=== PATIENT | female | born 1995 | race Two or more races ===

== ENCOUNTER 2024-01-21 09:09 | Outpatient (CLI) | payer OTHER, BC, SELFPAY | END 2024-01-21 09:10 | disposition home or self-care (01) | LOC: LKVREF 09:09 | PROVIDERS: Visit Provider Advanced Practice Midwife | DX: E03.9 Hypothyroidism, unspecified (principal) | CPT/HCPCS: 84443 ==

== ENCOUNTER 2024-02-05 12:11 | Outpatient (CLI) | payer OTHER, BC, SELFPAY ==
--- NOTE | 2024-02-05 12:30 | US_ITS ---
Patient: SHAILA STORY Facility:?[facility] Patient ID:?[id number] Site Patient ID:?[id number]. Site :?[id number] Study:?US-OB Pelvis OB F/U-02/05/2024 12:58:16 PM Ordering Physician:?HARMAN FRAIRE CNM Final Report: ----- ADDENDUM ----- CORRECTION: : Item 1. in the IMPRESSION should read, ?Living fetus in breech lie with gestational age of 28 weeks by LMP and 28 weeks 6 days by today`s measurements. EDC based on LMP is 04/29/2024.? Dictated by Dylon Noble MD @ Feb 10 2024 11:57AM INDICATION: Velamentous cord insertion TECHNIQUE: Limited transabdominal two-dimensional hernandez-scale ultrasound examination. COMPARISON: None FINDINGS: There is a living fetus in breech lie with gestational age of 28 weeks by LMP and 28 weeks 6 days by today`s measurements. EDC based on LMP is 04/29/2024. BPD: 7.2 cm, 28 weeks 5 days Head circumference: 27.0 cm, 29 weeks 3 days Abdominal circumference: 24.6 cm, 28 weeks 6 days Femur length: 5.3 cm, 28 weeks 2 days The weight is estimated at 1270 grams, the 65th percentile. The heart rate is measured at 139 beats per minute and the rhythm appears regular. The amniotic fluid volume is within normal limits with single deepest pocket of 5.8 cm. The placenta is right wall and superior to the cervical os. There is no evidence of previa. A velamentous cord insertion is demonstrated. IMPRESSION: 1. Living fetus in breech lie with gestational age of 28 weeks by LMP and 20 weeks 6 days by today`s measurements. EDC based on LMP is 04/29/2024. 2. weight estimated at 1270 grams, the 65th percentile. 3. Velamentous cord insertion. Dictated by Dylon Noble MD @ 02/06/2024 10:46:33 AM Signed by:?Dylon Noble MD @02/06/2024 10:46:33 AM (Electronic Signature)
== END 2024-02-05 12:12 | disposition home or self-care (01) ==
LOC: US 12:12
PROVIDERS: Visit Provider Advanced Practice Midwife
DX: O43.123 Velamentous insertion of umbilical cord, third trimester (principal); Z3A.28 28 weeks gestation of pregnancy
CPT/HCPCS: 76816; 86592

== ENCOUNTER 2024-03-05 08:10 | Outpatient (CLI) | payer OTHER, BC, SELFPAY ==
--- NOTE | 2024-03-05 08:15 | US_ITS ---
Patient: SHAILA STORY Facility:?[facility] Patient ID:?[id number] Site Patient ID:?[id number]. Site :?1995 Study:?US-OB Pelvis growth-03/05/2024 8:48:15 AM Ordering Physician:?Rachell Mckinley Final Report: INDICATION: Third trimester scan, evaluate growth. velamentous cord insertion. COMPARISON: 02/05/2024 TECHNIQUE: Real time hernandez scale imaging of the fetus was performed. FINDINGS: Sonographic imaging demonstrates a single living intrauterine gestation. Fetus demonstrates a regular cardiac rate of 142 beats per minute. Fetus has a breech position. The placenta lies anteriorly. Velamentous cord insertion again noted. Amniotic fluid volume appears normal and there is a single deepest vertical pocket: 4.8 cm. The estimated weight is 1983gm which lies at the 50th %. On the prior OB ultrasound exam dated 02/05/2024 the estimated weight was at the 65th%. BPD 34th percentile. HC 20th percentile. AC 68th percentile. FL 38th percentile the HC/AC ratio measures 1.02 range (0.96-1.13). IMPRESSION: Sonographic gestational age 32 weeks 2 days and sonographic due date of 04/28/2024. Good correlation with dates. Normal interval growth. Estimated weight 50th percentile. Abdominal circumference 68th percentile. Dictated by Santi Escobar MD @ 03/05/2024 10:15:27 AM Signed by:?Santi Escobar MD @03/05/2024 10:15:27 AM (Electronic Signature)
== END 2024-03-05 08:11 | disposition home or self-care (01) ==
LOC: US 08:10
PROVIDERS: Visit Provider Advanced Practice Midwife
DX: O43.123 Velamentous insertion of umbilical cord, third trimester (principal); Z3A.32 32 weeks gestation of pregnancy
CPT/HCPCS: 76816

== ENCOUNTER 2024-03-19 08:14 | Outpatient (CLI) | payer OTHER, BC, SELFPAY | END 2024-03-19 08:15 | disposition home or self-care (01) | LOC: NFLDREF 04-07 15:50 | PROVIDERS: Visit Provider Obstetrics & Gynecology | DX: Z34.93 Encounter for supervision of normal pregnancy, unspecified, third trimester (principal); E03.9 Hypothyroidism, unspecified; Z3A.36 36 weeks gestation of pregnancy | CPT/HCPCS: 82728; 84443 ==

== ENCOUNTER 2024-04-02 08:12 | Outpatient (CLI) | payer OTHER, BC, SELFPAY ==
--- NOTE | 2024-04-02 08:15 | CRLHL7_ITS ---
For Patients: As a result of the Century Cures Act, medical imaging exams and procedure reports are released immediately into your electronic medical record. You may view this report before your referring provider. If you have questions, please contact your health care provider. HISTORY: Velamentous cord insertion COMPARISON: Ob ultrasound from 03/05/2024 TECHNIQUE: Ultrasound examination of the is performed with transabdominal technique. The biophysical profile is also performed. FINDINGS: A single intrauterine gestation is seen in cephalic presentation with regular cardiac activity at 147 beats per minute. The placenta is anterior and to the right and is free of the cervical os. The placental grade is 3 and the amniotic fluid volume is normal. Single deepest vertical pocket: Normal at 6.7 cm. BPD: 8.8 cm 35 weeks 3 days HC: 32.5 cm 36 weeks 5 days AC: 34.3 cm 38 weeks 1 day. Ninety-sixth percentile. FL: 6.8 cm 35 weeks 1 day The estimated age by ultrasound is 36 weeks 3 days, with an estimated date of delivery of 04/27/2024. This correlates well with the clinical age of 36 weeks 1 day and the previous ultrasound. The FL/AC ratio of 19.9 is just below bottom normal 20.0. The rest of the ultrasound ratios are normal. The estimated weight of 3100 grams is at the 74th percentile based on the clinical dates. The biophysical profile score is 8/8, with no points off. IMPRESSION: 1. Single intrauterine gestation in cephalic presentation with regular cardiac activity. 2. Estimated gestational age is 36 weeks 3 days. 3. There has been appropriate interval growth. 4. Estimated weight of 3100 grams is at the 74th percentile based on the clinical dates. 5. Biophysical profile score is 8/8, with no points off. Dictated by Rafat Crowell MD @ 04/04/2024 11:50:17 PM (Electronically Signed)
== END 2024-04-02 08:13 | disposition home or self-care (01) ==
LOC: US 08:13
PROVIDERS: Visit Provider Obstetrics & Gynecology
DX: O43.123 Velamentous insertion of umbilical cord, third trimester (principal); Z3A.36 36 weeks gestation of pregnancy
CPT/HCPCS: 76816; 76819; 87081; 87653

== ENCOUNTER 2024-04-27 17:44 | Outpatient (CLI) | payer OTHER, BC, SELFPAY ==
[2024-04-27 18:03] VITALS: BP 117/72; PULSE 75
[2024-04-27 18:04] VITALS: PULSE 77; O2SAT 98
--- NOTE | 2024-04-27 21:42 | PC.OBNST ---
NST Note NST Note Start: 04/27/24 18:14 Freq: ONCE Status: Active Protocol: Document 04/27/24 20:30 HCR (Rec: 04/27/24 21:00 HCR [id number]) NST Note 1 Para (# of births) 0 EDC 04/29/24 Gestational Age In Weeks & Days 39 Weeks & 5 Days Patient Presented with Complaint(s) of Contractions/cramping, Decreased movement Reactive Yes Appropriate for Gestational Age Yes DYLAN Menchaca, DYLAN Date 04/27/24 Reactive Yes Appropriate for Gestational Age Yes DYLAN Herman, DYLAN Date 04/27/24 OB NST charge Yes Complete NST Note via Write Note Yes The provider's electronic signature indicates the NST is reactive/appropriate for gestational age. *Note to provider: If an addendum is required, open the patient's chart and click on the note under the Nurse/Allied Health tab.
== END 2024-04-27 20:32 | disposition home or self-care (01) ==
LOC: OB OUT 17:45 → OB 17:46
PROVIDERS: Visit Provider Obstetrics & Gynecology
DX: O36.8130 Decreased fetal movements, third trimester, not applicable or unspecified (principal); Z3A.39 39 weeks gestation of pregnancy
CPT/HCPCS: 59025; G0463

== ENCOUNTER 2024-04-30 09:33 | Outpatient (CLI) | payer OTHER, BC, SELFPAY ==
--- NOTE | 2024-04-30 09:30 | CRLHL7_ITS ---
For Patients: As a result of the Century Cures Act, medical imaging exams and procedure reports are released immediately into your electronic medical record. You may view this report before your referring provider. If you have questions, please contact your health care provider. INDICATION: Post dates, velamentous insertion of umbilical cord COMPARISON: 04/02/2024 TECHNIQUE: Real time hernandez scale imaging of the fetus was performed. Without non-stress testing. FINDINGS: Sonographic imaging demonstrates a single living intrauterine gestation. Fetus demonstrates a regular cardiac rate of 145 beats per minute. Fetus has a vertex position. The amniotic fluid volume appears normal and there is a single deepest pocket measurement of 3.5 cm. The fetus was active and demonstrated normal breathing movements. There was normal flexion and extension of the trunk and extremities. IMPRESSION: Normal biophysical profile score of 8 out of 8. The cord insertion is not imaged on this study. Dictated by Santi Escobar MD @ 05/01/2024 7:37:22 PM (Electronically Signed)
== END 2024-04-30 09:34 | disposition home or self-care (01) ==
LOC: US 09:33
PROVIDERS: Visit Provider Obstetrics & Gynecology
DX: O43.122 Velamentous insertion of umbilical cord, second trimester (principal)
CPT/HCPCS: 76819

== ENCOUNTER 2024-05-02 18:34 | Inpatient (IN) | payer OTHER, BC, SELFPAY ==
[2024-05-02 18:04] VITALS: BP 130/85; PULSE 175; PULSE 77; TEMP 36.6; O2SAT 81
[2024-05-02 18:37] VITALS: BMI 36.0
--- NOTE | 2024-05-02 19:07 | PM.OBHPLI ---
OB - H&P: HPI Labor/Induction History of Present Illness Time Seen by Provider: 19:10 Date Seen: 05/02/24 Chief complaint: maternity Narrative: The patient is a 28 year old 1 para 0 at 40 weeks gestation by US, who presents with spontaneous onset of labor. is complicated by anemia and marginal cord insertion. Sheyla notes onset of regular painful contractions at 0800 this morning. She was 3cm in clinic Friday, s/p membrane sweep with brown bloody show. Today, she is having contractions every 4-5 minutes rated as 9/10 in severity. More recently, her pain is 6 to 7/10. She denies vaginal bleeding or leaking of fluid. Endorses active movement. Specific Issues/Plans G1, ARIEL: 04/29/24 by early second trimester US Transfer of care from [facility] at 21 weeks H&P by CGM on 04/23/24, full exam Dr. Murillo 04/30/24 # Velamentous cord insertion at level 2 US -Start growth US every 4 weeks at 28 weeks -Growth at 28wks 65% -Weekly testing after 36 weeks - worksheet completed 01/21/24 # Hypothyroidism, on levothyroxine 50mcg -TSH every trimester: - 13 weeks: 3.02 - 24 weeks: 2.00 - 34 weeks: 1.910 Tdap: 02/20/24 ULTRASOUNDS: 04/02/24 = 36 1/7 weeks: cephalic, SDP 6.7, EFW 74%, AC 96%, BPD 38%, HC 34%, FL 20% Meds Home Medications and Allergies Home Medications ?Medication ?Instructions ?Recorded ?Confirmed ?Type docosahexaenoic acid 200 mg mg PO 12/19/23 04/30/24 History capsule ( DHA) omeprazole 20 mg capsule,delayed 20 mg PO QDAY PRN 04/16/24 04/30/24 History release Allergies Allergy/AdvReac Type Severity Reaction Status Date / Time No Known Drug Allergies Allergy Verified 04/30/24 08:13 OB - H&P: Exam Physical Exam: Vital signs: Temp Pulse BP Pulse Ox 97.8 F 77 130/85 81 L 05/02/24 18:04 05/02/24 18:04 05/02/24 18:04 07/14/24 18:04 Narrative: General: Alert and oriented, in no acute distress Abdomen: Gravid. Nontender. Cervix: 4/70/-2, anterior and off to maternal left heart tones: Category 1. Baseline is 140 beats per minute, moderate variability, accelerations present decelerations absent. Bedside ultrasound: Cephalic presentation OB - Problem Based A/P Additional Plan (1) Anemia: Status: Acute (2) Velamentous insertion of umbilical cord: Status: Acute (3) : Status: Acute (4) Hypothyroidism: Status: Acute Plan Sheyla Caraballo is a 28 year old 1 para 0 at 40 weeks gestation by US, who presents with spontaneous onset of labor. is complicated by anemia and marginal cord insertion. Patient notes onset of regular/painful uterine contractions today, s/p membrane sweep in clinic on Friday. I was requested by RN to check patient due to difficult exam. She is 4/70/-2 with head well applied to the cervix. Her cervix is anterior and off to the maternal left. TAUS confirmed cephalic presentation. - Plan to admit for observation and augmentation with pitocin as needed overnight. Patient expressed understanding and is in agreement with plan. - EFW by US 4 weeks ago 3100 at 71%ile, AC 96%ile - BT and CBC on admission given anemia - GBS negative - Recommend labor circuit to optimize positioning - Analgesic measures available per patient request
[2024-05-02 19:36] LABS: Basophils Absolute Auto 0.03 K/uL (0.00-0.30); Basophils Percent Auto 0.3 % (0.0-3.0); Eosinophils Absolute Auto 0.15 K/uL (0.00-0.50); Eosinophils Percent Auto 1.4 % (0.0-7.0); Hemoglobin* 10.6 gm/dL (12.0-16.0); Immature Granulocytes Abs Auto 0.22 K/uL (0.00-0.30); Immature Granulocytes Pct Auto 2.1 %; Lymphocytes Percent Auto 17.6 % (20-44); Mean Corpuscular HGB Conc 31 gm/dL (32-36); Mean Corpuscular Hemoglobin 26 pg (26-34); Mean Corpuscular Volume 82 fL (80-100); Monocytes Percent Auto 7.3 % (0.0-11.0); Neutrophils Absolute Auto 7.58 K/uL (1.7-7.0); Neutrophils Percent Auto 71.3 % (42.0-72.0); Platelet Count* 290 K/uL (140-440); RDW Coefficient of Variation % 17.1 % (11.5-15.5); Red Blood Count 4.15 m/uL (4.00-5.20); White Blood Count* 10.63 K/uL (4.50-11.00)
[2024-05-02 19:38] LABS: Slide Review Reflex No
[2024-05-02 20:46] VITALS: BP 121/84; PULSE 74; PULSE 75; TEMP 36.4; O2SAT 99
[2024-05-03] VITALS (25 sets, daily range): BP systolic 103–160; BP diastolic 55–124; PULSE 63–105; RESP 18–20; TEMP 36.4–37.3; O2SAT 97–100
[2024-05-03] MEDS: OXYTOCIN 30 unit/500 ML in NS 30 UNIT/500 ML BAG IVPB (00:48)
[2024-05-03] MEDS: LACTATED RINGERS 1000 ML 1,000 ML 125 ML IV ×3 (00:48→16:59)
--- NOTE | 2024-05-03 14:43 | P.OBPN_ITS ---
Subjective Time Seen by Provider: 09:30 Date Seen: 05/03/24 Narrative: Patient complains of left lower quadrant pain and suprapubic pain. Discomfort does not seem to correlate with contractions but is more of a constant nature. Denies unusual vaginal discharge or leakage of fluid. Objective Exam: Abdomen gravid, nontender, fetus is in a vertex presentation by Buzz's with back along the maternal left. Vital Signs: Last Vital Signs Temp 97.5 F L 05/03/24 10:39 Pulse 78 05/03/24 12:07 Resp 20 05/03/24 07:51 BP 129/83 05/03/24 12:07 Pulse Ox 99 05/03/24 14:42 Pelvic Exam Dilation (cm): 5 Effacement (%): 80 Station: -2 Comments: Occiput transverse Contractions Monitor mode: External Contraction Frequency: 2-4 minutes Contraction pattern: Irregular Contraction intensity: Moderate Pitocin Rate (mU/min): 11 Assessment Assessment: prodromal labor Heart Rate Baseline: 135 Product Development Consultant Variability: Moderate (6-25) Monitor Accelerations: Present Monitor Decelerations: None Plan Plan: Continue expectant management. Consider trying position changes to affect rotation and descent into the pelvis. Patient counseled as to pain control options if needed.
--- NOTE | 2024-05-03 14:46 | PM.OBPNL ---
Subjective Time Seen by Provider: 14:30 Date Seen: 05/03/24 Narrative: Patient complains of pelvic pressure. Patient is pushing involuntarily with contractions while standing at the bedside per nursing. Membranes spontaneously ruptured at 1315, light meconium staining of the amniotic fluid was noted. Objective Exam: Patient standing by bedside, distressed with contractions. Abdomen soft, gravid, intermittently firm with contractions. Vital Signs: Last Vital Signs Temp 97.5 F L 05/03/24 10:39 Pulse 78 05/03/24 12:07 Resp 20 05/03/24 07:51 BP 129/83 05/03/24 12:07 Pulse Ox 99 05/03/24 14:42 Pelvic Exam Dilation (cm): 7 Effacement (%): 100 Station: 0 Contractions Monitor mode: External Contraction Frequency: 1.5-3 minutes Contraction pattern: Regular Contraction intensity: Strong/Firm Pitocin Rate (mU/min): 12 Assessment Assessment: active labor Amniotic Membrane Status: SROM Status: Category l Heart Rate Baseline: 135 Gasoline Pump Mechanic Variability: Moderate (6-25) Monitor Accelerations: Present Monitor Decelerations: None Plan Plan: Continue expectant management. Patient requests nitrous oxide for pain control. Anticipate vaginal delivery.
[2024-05-03] MEDS: LIDOCAINE 1 % PF 30 ML INJECTION (17:27)
--- NOTE | 2024-05-03 17:56 | W.PM.OBVAGDE ---
OB Procedure Vag Delivery Mother Details Mother Details: The patient is a 28 year-old, 1, Para 0, admitted on 05/02/24 at 40 3/7 weeks gestation in prodromal labor. Contractions had begun on 05/02/24 at 0800, and were 4-5 minutes apart at the time of arrival. Cervix on admission was 4/70/-2 with membranes intact. Labor was initially managed expectantly overnight. : 1 Para: 0 Weeks Gestation: 40.3 Admission Date: 05/02/24 Additional Details Amniotic Membrane Status: SROM Amniotic Membrane Rupture Date: 05/03/24 Amniotic Membrane Rupture Time: 13:15 Amniotic Membrane Fluid Description: Meconium Stained Analgesia/Anesthesia Type: None Waterbirth: No Pitcoin: Yes Intrapartal Events: Labor Augmentation Delivery augmentation: pitocin Labor Onset: 12:45 Complete: 15:35 Pushin:45 Heart: heart tones during second stage were 120's baseline with variable decelerations that deepened as vertex descended, initially to 100s, then to 90s, and some just prior to delivery to 60-80s. Delivery Details Delivery Date: 05/03/24 Delivery Time: 17:25 Route of delivery: Infant Gender: Female Infant Viability: Alive; Heart Rate Present Position at Delivery: OA Delivery Details: Delivered over 2nd degree midline perineal laceration via spontaneous vaginal delivery. Infant was placed on maternal abdomen.? Cord was clamped and cut after a 60 second delay. Nose and mouth were bulb suctioned.? Infant weight pending. 1 Minute Interval Total Score: 8 5 Minute Interval Total Score: 9 Additional Details Shoulder Dystocia: No Placenta Delivery Time: 17:32 Placental Delivery Description: Spontaneous Delivery repair: Chromic (3-0) Procedure Done: Global Blood Loss: 350 Laceration: Perineal - 2nd Degree Blood Loss Measurement Type: EBL Bakri Used: No Sponge/Need Count Correct: Yes Cord Vessel Description: 3 Vessels (velamentous/marginal) and Tight (nuchal cord x1, reduced over vertex prior to delivery of shoulders) Event Summary Status: Mother and infant were stable after delivery. Disposition: floor
[2024-05-04 00:47] VITALS: BP 124/75; PULSE 88; RESP 18; TEMP 37.3; O2SAT 98
[2024-05-04] MEDS: IBUPROFEN 600 MG TABLET PO ×2 (00:54→13:01)
[2024-05-04] MEDS: LANOLIN CREAM 1 APPLIC TOPICAL (00:54)
[2024-05-04 05:02] VITALS: BP 107/61; PULSE 90; RESP 17; TEMP 37.2; O2SAT 98
[2024-05-04 06:17] LABS: Hemoglobin* 8.2 gm/dL (12.0-16.0)
--- NOTE | 2024-05-04 07:59 | P.OBPN_ITS ---
OB - PN:Subj Subjective Date Seen: 05/04/24 Patient comments OB post-: no complaints, pain well controlled, tolerating diet and flatus present Atlantic status: and doing well Atlantic feeding status: exclusively Narrative: complications:? none? Sheyla feels well.? Her pain is well controlled with current medications.? She has no new complaints.? Urinary output is adequate and she is voiding without difficulty.? Has a good appetite, is tolerating a general diet, is passing flatus, and has not yet had a bowel movement.? Has scant amount of rubra lochia.? She is ambulating well.?She is and feels the latch is good but is concerned about how much baby is getting. Briefly discussed normal amounts of breastmilk and what to expect. Her Hgb this am is 8.2. She denies feeling lightheaded or dizzy but has not been up much yet besides to the bathroom. Encouraged ambulation today. She is feeling somewhat physically fatigued. Will restart PO iron supplementation and encouraged dietary intake. Repeat Hgb ordered for the morning. OB - PN: Obj Exam Physical Exam: Vital signs: Temp Pulse Resp BP Pulse Ox O2 Del Method 99 F 90 17 107/61 98 Room Air 05/04/24 05:02 05/04/24 05:02 05/04/24 05:02 05/04/24 05:02 05/04/24 05:02 05/04/24 05:02 Narrative: GENERAL APPEARANCE:? normal affect, alert, no distress? MOOD:? appropriate? CHEST:? clear to auscultation and percussion? HEART:? regular rate and rhythm? ABDOMEN:? soft, non-tender the uterine fundus is U/2 and is appropriate for the stage of recovery.? PERINEUM:? mild edema of the perineum, there is a 2nd degree perineal laceration that is healing well.? EXTREMITIES:? normal and no edema? OB - PN: Obj Data Labs Labs: Laboratory Results - last 24 hr 05/04/24 05:53 Hgb 8.2 L OB - PN: A/P Delivery Assessment and Plan (1) Anemia: Status: Acute (2) Hypothyroidism: Status: Acute (3) Lactating mother: Status: Acute (4) care following vaginal delivery: Status: Acute Plan day: 1 Plan: routine care Comments: Routine care. Anticipate discharge home tomorrow. Restart PO iron supplementation today. Repeat Hgb tomorrow morning.
[2024-05-04 08:02] VITALS: BP 112/77; PULSE 87; RESP 16; TEMP 37.2; O2SAT 98
[2024-05-04] MEDS: FERROUS SULFATE 325 MG TABLET PO (13:02)
[2024-05-04] MEDS: DOCUSATE SODIUM 100 MG CAPSULE PO (13:04)
[2024-05-04 13:05] VITALS: BP 117/73; PULSE 91; RESP 16; TEMP 37.1; O2SAT 97
[2024-05-04 17:42] LABS: Rapid Plasma Reagin (RPR) Non Reactive (Non Reactive)
[2024-05-04 18:50] VITALS: BP 121/75; PULSE 87; RESP 16; TEMP 36.6; O2SAT 98
[2024-05-05 00:32] VITALS: BP 109/67; PULSE 84; RESP 18; TEMP 37.4; O2SAT 98
[2024-05-05] MEDS: IBUPROFEN 600 MG TABLET PO ×2 (00:39→13:29)
[2024-05-05 06:35] LABS: HGB WITH REFLEX TO FERRITIN 8.4 (12.0-16.0)
[2024-05-05 08:14] LABS: Ferritin* 13.3 ng/mL (6.24-137.0)
[2024-05-05 08:47] VITALS: BP 109/68; PULSE 95; RESP 16; TEMP 37; O2SAT 98
--- NOTE | 2024-05-05 10:29 | P.DS_ITS ---
DS: Providers Provider Time Seen by Provider: 09:30 Date Seen: 05/05/24 Date of admission: 05/02/24 18:34 Primary care physician: Not a Local Provider Admitting Clinician: Jacqueline Mcgill MD Attending Physician on discharge: Jacqueline Mcgill MD Date of Discharge: 05/05/24 DS: Diagnosis Discharge Diagnosis (1) care following vaginal delivery: Status: Acute (2) Lactating mother: Status: Acute (3) Anemia: Status: Acute (4) Hypothyroidism: Status: Acute Exam Narrative: Exam Narrative: GENERAL APPEARANCE:? normal affect, alert, no distress MOOD:? appropriate CHEST:? clear to auscultation HEART:? regular rate and rhythm ABDOMEN:? soft, non-tender the uterine fundus is 2 cm below Umbilicus, Midline and is appropriate for the stage of recovery. PERINEUM:? mild edema of the perineum, there is a 2nd Perineal Laceration well approximated,? that is healing well. EXTREMITIES:? normal and no edema Const: Vital Signs, click to edit/add: Vital Signs - 24 hr 05/04/24 13:05 05/04/24 18:50 05/05/24 00:32 Temperature 98.7 F 97.9 F 99.3 F Pulse Rate [Pulse Oximeter] 91 87 84 Respiratory Rate 16 16 18 Blood Pressure [Ri ght Arm] 117/73 121/75 109/67 Pulse Oximetry 97 98 98 Oxygen Delivery Me thod Room Air Room Air Room Air 05/05/24 08:47 Temperature 98.6 F Pulse Rate [Pulse Oximeter] 95 Respiratory Rate 16 Blood Pressure [Ri ght Arm] 109/68 Pulse Oximetry 98 Oxygen Delivery Me thod OB - DS: Summary Hospital Course Hospital Course: The patient is a 28 year old G 1 P 1001 at 40w6d weeks gestation that was admitted to the Center on 05/02/24 for IOL for post dates. She had an uncomplicated vaginal delivery. She delivered a viable female infant. She is breast feeding. the patient has done well. Peripartum Data delivery method: Vaginal Laceration description: Perineal - 2nd Degree Episiotomy description: None complications: none Infant Gender: Female Infant Discharge Plan: Home Status at Discharge Overall status at discharge: patient is progressing back to baseline Time Spent with Patient Time attestation: Total time spent providing and/or coordinating discharge services: Time spent: Less than 30 minutes Discharge Plan Discharge Disposition: Home, Self-Care Date of Admission: 05/02/24 18:34 Attending Provider on Discharge: Gloria West Primary Care Provider: Provider,Not a Local Condition: Stable Anticipated Discharge Date/Time: 05/05/24 10:29 Discharge Medications: Continued DHA 200 mg capsule PO levothyroxine 50 mcg capsule 50 mcg PO QDAY Qty: 90 0RF ferrous sulfate 325 mg (65 mg iron) tablet,delayed release (DR/EC) 650 mg PO Q OTHER DAY Qty: 60 0RF Discontinued omeprazole 20 mg capsule,delayed release(DR/EC) 20 mg PO QDAY PRN Discharge Orders: Discharge Order (Routine); Ordered 05/05/24 Ordered By: Gloria West Patient Education: OB Over the Counter Medication Information, OB Vaginal/Breast Feeding Additional Instructions: Follow up at 2 weeks and 6 weeks in clinic Activity Level: Activity as Tolerated Discharge Diet: Regular Follow Up Appointments: Provider,Not a Local [Primary Care Provider] - Forms: [employer] Info Instructions
[2024-05-05] MEDS: DOCUSATE SODIUM 100 MG CAPSULE PO (13:30)
== END 2024-05-05 14:02 | disposition home or self-care (01) | DRG 560 ==
LOC: OB OUT 18:34 → OB 18:34
PROVIDERS: Advanced Practice Midwife; Obstetrics & Gynecology; Admitting Provider Obstetrics & Gynecology; Visit Provider Obstetrics & Gynecology
DX: O62.0 Primary inadequate contractions (principal); O77.0 Labor and delivery complicated by meconium in amniotic fluid; O43.123 Velamentous insertion of umbilical cord, third trimester; O69.89X0 Labor and delivery complicated by other cord complications, not applicable or unspecified; O99.284 Endocrine, nutritional and metabolic diseases complicating childbirth; E03.9 Hypothyroidism, unspecified; O99.02 Anemia complicating childbirth; D64.9 Anemia, unspecified; O70.1 Second degree perineal laceration during delivery; Z3A.40 40 weeks gestation of pregnancy; Z37.0 Single live birth
CPT/HCPCS: 36415; 76815; 82728; 85018; 85025; 86592; 86850; 86900; 86901; 88307; A9270; J2001; J7120

== ENCOUNTER 2024-05-07 11:22 | Inpatient (IN) | payer OTHER, BC, SELFPAY ==
[2024-05-07] VITALS (9 sets, daily range): BP systolic 101–123; BP diastolic 64–88; PULSE 78–98; RESP 12–18; TEMP 36.7–37.4; O2SAT 96–98; BMI 25.0
--- NOTE | 2024-05-07 11:39 | ED.GENADULT ---
HPI - General Adult General Time Seen by Provider: 11:39 Date Seen: 05/07/24 Chief complaint: Extremity Pain/Injury, Lower Stated complaint: abdominal pain - edema Time Seen by Provider: 05/07/24 11:32 Source: patient, RN notes reviewed and old records reviewed Mode of arrival: ambulatory Limitations: no limitations History of Present Illness HPI narrative: This 28-year-old female was referred from [facility] by nursing staff with concern of bilateral leg and wrist swelling . Patient was having increasing right calf pain with this. Patient delivered vaginally on 05/03/2024, was discharged on the . She is a 1 para 1, was an induction of labor for postdates at 40 weeks 6 days on May 02. Her blood pressure in clinic today was 119/80, she was having no chest pain, no shortness of breath. She was referred down here for the possibility of ultrasounds in ruling out DVTs. Patient notes the swelling started yesterday increased through the night, her legs feel tense. She has noted no fevers chills, no shortness of breath, no chest pain. She does not have any abdominal pain but notes now with walking her vagina hurts. She is still having lochia, no significant vaginal bleeding, no purulent discharge. She does state that she had a vaginal repair. In review of her chart, she does have hypothyroidism with a normal TSH checked in February. Related Data Home Medications ?Medication ?Instructions ?Recorded ?Confirmed docosahexaenoic acid 200 mg mg PO 12/19/23 04/30/24 capsule ( DHA) Previous Rx's ?Medication ?Instructions ?Recorded levothyroxine 50 mcg capsule 50 mcg PO QDAY #90 caps 02/05/24 ferrous sulfate 325 mg (65 mg 650 mg (2 x 325 mg (65 mg iron)) 03/05/24 iron) tablet,delayed release PO Q OTHER DAY #60 tabs Allergies Allergy/AdvReac Type Severity Reaction Status Date / Time No Known Drug Allergies Allergy Verified 04/30/24 08:13 Review of Systems Status of ROS: Reports: 6 or more systems reviewed and unremarkable except as noted in History and below [facility] Medical History (Updated 05/07/24 @ 13:55 by Anne Contreras MD) Hypothyroidism ?E03.9 - Hypothyroidism, unspecified (ICD-10) Family History Grandmother Diabetes Social History What is your current living situation?: I presently have a place to live Problems where you live: no known problems In the past 12 months, utilities in danger of being shut off: no In past 12 months, lack of transportation kept you from medical appts, meetings, work, or getting things needed for daily living: no In the past 12 mos, have been you worried that your food would run out before you had money to buy more?: never true In the past 12 mos, the food you bought just didn't last and you didn't have money to buy more?: never true Smoking Status: Never smoker Non-prescribed substance use: denies use How often does anyone, including family, friends and others, physically hurt you: never How often does anyone, including family, friends and others, insult or talk down to you: never How often does anyone, including family, friends and others, threaten you with harm: never How often does anyone, including family, friends and others, scream or curse at you: never Little interest or pleasure in doing things: several days Feeling down, depressed, or hopeless: several days Exam Const: Vital Signs, click to edit/add: Vital Signs - 24 hr 05/07/24 11:26 Temperature 98.0 F Pulse Rate [Right Pulse Oximeter] 98 Respiratory Rate 18 Blood Pressure [Ri ght Upper Arm] 116/79 Pulse Oximetry 98 Oxygen Delivery Me thod Room Air This 28-year-old female is seen in exam room 5, she is line on her right side, vitals good. Sclera clear extraocular muscles intact, face normal without any swelling, able speak in complete sentences. Neck supple, no adenopathy, no thyromegaly masses or nodules. Lungs are clear, good air entry, no wheezing or crackles. CV regular rate and rhythm, no murmur, normal S1-S2, no S3-S4. Abdomen is soft, nontender, still enlarged uterus but no tenderness. She has about 3+ pitting edema of her left lower extremity 3 to 4+ of her right lower extremity. Neurovascular is intact. Her calves are sore, lower extremities are sore but more so globally. There is no overlying erythema or warmth. Patient was ambulatory into the ED of her own accord. Documenting provider has reviewed patient's vital signs: yes Course Course ED Course: We will obtain bilateral lower extremity ultrasounds to rule out DVT. Did review third-spacing. Reviewed that seems to be more frequent in deliveries but this certainly can happen. She does have Shan hose at home, they been cutting into the ankles. Reviewed that we can not rule out the DVTs, make sure that they are not there and could consider doing Jace wrapping until the swelling is down a little bit. Usually for most people this does start to reverse itself within a few days an usually is not a significant problem beyond a week. We will also check labs. Her blood pressures are quite good today, really is reassuring against preeclampsia. Will likely talk to the social services analyst on-call as well. Consultations Consultation #1: Page Dr. Womack to review this case. Will await a call back. She has centrally called right back. We reviewed the elevated liver enzymes. Blood pressures are normal. Dr. Espana it is going to see her in clinic after this, she will be able to do a better vaginal exam, will review the liver enzymes in the possibility of preeclampsia developing. We will discharge patient from the ED at her request and have her go to clinic to see OB. Time: 13:46 Vital Signs Vital signs: Initial Vital Signs Temperature 98.0 F 05/07/24 11:26 Temperature Source Temporal Artery Scan 05/07/24 11:26 Pulse Rate 98 05/07/24 11:26 Respiratory Rate 18 05/07/24 11:26 Blood Pressure 116/79 05/07/24 11:26 Blood Pressure Mean 91 05/07/24 11:26 Blood Pressure Position Sitting 05/07/24 11:26 Pulse Oximetry 98 05/07/24 11:26 Oxygen Delivery Method Room Air 05/07/24 11:26 Vital Signs Temperature 98.0 F 05/07/24 11:26 Pulse Rate 98 05/07/24 11:26 Respiratory Rate 18 05/07/24 11:26 Blood Pressure 116/79 05/07/24 11:26 Pulse Oximetry 98 05/07/24 11:26 Oxygen Delivery Method Room Air 05/07/24 11:26 Temperature 98.0 F 05/07/24 11:26 Pulse Rate 98 05/07/24 11:26 Respiratory Rate 18 05/07/24 11:26 Blood Pressure 116/79 05/07/24 11:26 Pulse Oximetry 98 05/07/24 11:26 Oxygen Delivery Method Room Air 05/07/24 11:26 Medical Decision Making Lab Data Labs: Lab Results 05/07/24 Range/Units 11:56 WBC 12.45 H (4.50-11.00) K/uL RBC 3.63 L (4.00-5.20) m/uL Hgb 9.5 L (12.0-16.0) gm/dL Hct 30.3 L (33.0-51.0) % MCV 84 (80-100) fL MCH 26 (26-34) pg MCHC 31 L (32-36) gm/dL RDW Coeff of Chetan 17.9 H (11.5-15.5) % Plt Count 306 (140-440) K/uL Neut % (Auto) 68.2 (42.0-72.0) % Lymph % (Auto) 16.6 L (20-44) % [place] % (Auto) 6.3 (0.0-11.0) % Eos % (Auto) 3.1 (0.0-7.0) % Baso % (Auto) 0.4 (0.0-3.0) % Neut # (Auto) 8.50 H (1.7-7.0) K/uL Lymph # (Auto) 2.10 (0.90-2.90) K/uL [place] # (Auto) 0.80 (0.00-0.90) K/UL Eos # (Auto) 0.40 (0.00-0.50) K/uL Baso # (Auto) 0.00 (0.00-0.30) K/uL Abs Immat Gran (auto) 0.70 H (0.00-0.30) K/uL Imm/Tot Granulo (auto) 5.4 % Sodium 136 (135-149) mmol/L Potassium 3.9 (3.6-5.1) mmol/L Chloride 106 (96-114) mmol/L Carbon Dioxide 24 (20-32) mmol/L Anion Gap 6 L (7-15) mEq/L BUN 13 (5-24) mg/dL Creatinine 0.5 (0.5-1.5) mg/dL Estimated Creat Clear 120.32 Estimated GFR 131 ml/min Glucose 108 (60-115) mg/dL Calcium 8.8 (8.4-10.6) mg/dL Total Bilirubin 0.2 (0.1-1.5) mg/dL AST 69 H (12-35) U/L ALT 58 H (4-35) U/L Alkaline Phosphatase 204 H (40-150) U/L Total Protein 6.5 (6.0-8.3) g/dL Albumin 3.5 (3.3-5.0) g/dL Imaging Data Venous US: Attestation: I have reviewed the pertinent imaging results. Radiologist's impression: Patient: PORSHA HERNANDEZ Facility:?[facility] Patient ID:?[id number] Site Patient ID:?[id number]. Site :?[id number] Study:?US-Extremity Bilateral LEV-05/07/2024 12:26:33 PM Ordering Physician:Mohit Rodríguez Final Report: INDICATION: swelling and pain. TECHNIQUE: Ultrasound venous duplex bilateral lower extremity. Compression venous exam was performed using hernandez-scale, color Doppler, and spectral Doppler analysis. COMPARISON: None available. FINDINGS: Deep veins: Sonographic imaging demonstrates the bilateral common femoral, deep femoral, superficial femoral, popliteal, posterior tibial and peroneal veins to be fully compressible with normal color Doppler blood flow. Superficial veins: Visualized portions of the greater saphenous veins are fully compressible. IMPRESSION: Normal bilateral lower extremity venous ultrasound, no sign of deep venous thrombosis. Dictated by Babs Loya MD @ 05/07/2024 12:36:43 PM (Electronic Signature) Discharge Plan Discharge Clinical Impression: perineal pain, Elevated liver enzymes, Edema, peripheral Hypothyroidism Qualifiers: Hypothyroidism type: unspecified Qualified Code(s): E03.9 - Hypothyroidism, unspecified Patient Disposition: Home, Self-Care Condition: Stable Instructions: Leg Edema (ED) Additional Instructions: At the request of Dr. Vu Soni of the obstetricians, we are going to discharge you from the ER in she will subsequently see you in clinic. She will take a look at your perineum, further discuss the significance of the liver enzymes that we found today. She will also give you further tips on the edema. Her TSH was drawn in if there is any concern, we will make sure either you or the social services analyst is aware of this. Activity Level: Activity as Tolerated Discharge Diet: Regular Prescriptions: No Action DHA 200 mg capsule PO levothyroxine 50 mcg capsule 50 mcg PO QDAY Qty: 90 0RF ferrous sulfate 325 mg (65 mg iron) tablet,delayed release (DR/EC) 650 mg PO Q OTHER DAY Qty: 60 0RF Follow Up/Referrals: Provider,Not a Local [Primary Care Provider] - Stand Alone Forms: [employer] Info Instructions
--- NOTE | 2024-05-07 11:49 | CRLHL7_ITS ---
For Patients: As a result of the Century Cures Act, medical imaging exams and procedure reports are released immediately into your electronic medical record. You may view this report before your referring provider. If you have questions, please contact your health care provider. INDICATION: swelling and pain. TECHNIQUE: Ultrasound venous duplex bilateral lower extremity. Compression venous exam was performed using hernandez-scale, color Doppler, and spectral Doppler analysis. COMPARISON: None available. FINDINGS: Deep veins: Sonographic imaging demonstrates the bilateral common femoral, deep femoral, superficial femoral, popliteal, posterior tibial and peroneal veins to be fully compressible with normal color Doppler blood flow. Superficial veins: Visualized portions of the greater saphenous veins are fully compressible. IMPRESSION: Normal bilateral lower extremity venous ultrasound, no sign of deep venous thrombosis. Dictated by Babs Loya MD @ 05/07/2024 12:36:43 PM (Electronically Signed)
[2024-05-07 12:02] LABS: Basophils Percent Auto 0.4 % (0.0-3.0); Eosinophils Percent Auto 3.1 % (0.0-7.0); Hematocrit 30.3 % (33.0-51.0); Hemoglobin* 9.5 gm/dL (12.0-16.0); Immature Granulocytes Pct Auto 5.4 %; Lymphocytes Percent Auto 16.6 % (20-44); Mean Corpuscular HGB Conc 31 gm/dL (32-36); Mean Corpuscular Hemoglobin 26 pg (26-34); Mean Corpuscular Volume 84 fL (80-100); Monocytes Percent Auto 6.3 % (0.0-11.0); Neutrophils Percent Auto 68.2 % (42.0-72.0); Platelet Count* 306 K/uL (140-440); RDW Coefficient of Variation % 17.9 % (11.5-15.5); Red Blood Count 3.63 m/uL (4.00-5.20); White Blood Count* 12.45 K/uL (4.50-11.00)
[2024-05-07 12:05] LABS: Slide Review Reflex No
[2024-05-07 12:14] LABS: Albumin* 3.5 g/dL (3.3-5.0)
[2024-05-07 12:15] LABS: Chloride* 106 mmol/L (96-114); Potassium* 3.9 mmol/L (3.6-5.1); Sodium* 136 mmol/L (135-149)
[2024-05-07 12:17] LABS: Anion Gap 6 mEq/L (7-15); Aspartate Amino Transferase* 69 U/L (12-35); Bilirubin Total* 0.2 mg/dL (0.1-1.5); Carbon Dioxide* 24 mmol/L (20-32); Creatinine* 0.5 mg/dL (0.5-1.5); Est. Creatinine Clearance* 120.32; Estimated Glomerular Filt Rate 131 ml/min; Total Protein* 6.5 g/dL (6.0-8.3)
[2024-05-07 12:18] LABS: Alanine Aminotransferase* 58 U/L (4-35); Alkaline Phosphatase* 204 U/L (40-150); Blood Urea Nitrogen* 13 mg/dL (5-24); Calcium* 8.8 mg/dL (8.4-10.6); Glucose* 108 mg/dL (60-115)
[2024-05-07] MEDS: IBUPROFEN 600 MG TABLET PO ×2 (17:34→23:12)
[2024-05-07 17:49] LABS: Hematocrit 31.4 % (33.0-51.0); Hemoglobin* 9.8 gm/dL (12.0-16.0); Mean Corpuscular HGB Conc 31 gm/dL (32-36); Mean Corpuscular Hemoglobin 26 pg (26-34); Mean Corpuscular Volume 83 fL (80-100); Platelet Count* 323 K/uL (140-440); Red Blood Count 3.78 m/uL (4.00-5.20); White Blood Count* 13.29 K/uL (4.50-11.00)
[2024-05-07 17:52] LABS: Slide Review Reflex No
[2024-05-07 17:58] LABS: Albumin* 3.7 g/dL (3.3-5.0); Chloride* 105 mmol/L (96-114); Potassium* 3.9 mmol/L (3.6-5.1); Sodium* 136 mmol/L (135-149)
[2024-05-07 18:00] LABS: Bilirubin Total* 0.3 mg/dL (0.1-1.5); Carbon Dioxide* 25 mmol/L (20-32); Creatinine* 0.5 mg/dL (0.5-1.5); Est. Creatinine Clearance* 120.32; Estimated Glomerular Filt Rate 131 ml/min
[2024-05-07 18:01] LABS: Alanine Aminotransferase* 62 U/L (4-35); Alkaline Phosphatase* 223 U/L (40-150); Anion Gap 6 mEq/L (7-15); Aspartate Amino Transferase* 74 U/L (12-35); Blood Urea Nitrogen* 11 mg/dL (5-24); Calcium* 8.9 mg/dL (8.4-10.6); Glucose* 85 mg/dL (60-115); Total Protein* 6.9 g/dL (6.0-8.3)
[2024-05-07] MEDS: CLINDAMYCIN 900 MG/50 ML-D5W 900 MG/50 ML PIGGYBACK 100 MG IVPB (18:55)
[2024-05-07] MEDS: ACETAMINOPHEN 500 MG TABLET 1000 MG PO (20:01)
--- NOTE | 2024-05-07 20:12 | PM.OBLDTN ---
OB - Triage/Final Diagnosis Visit Information Time Seen by Provider: 16:00 Date Seen: 05/07/24 Date of evaluation: 05/07/24 Narrative: The patient is a [] year old [] para [] at [] weeks gestation by [], who presents with []. [] Evaluation Laboratory results: Laboratory Tests 05/07/24 05/07/24 Range/Units 17:40 11:56 WBC 13.29 H 12.45 H (4.50-11.00) K/uL RBC 3.78 L 3.63 L (4.00-5.20) m/uL Hgb 9.8 L 9.5 L (12.0-16.0) gm/dL Hct 31.4 L 30.3 L (33.0-51.0) % MCV 83 84 (80-100) fL MCH 26 26 (26-34) pg MCHC 31 L 31 L (32-36) gm/dL RDW Coeff of Chetan 17.9 H (11.5-15.5) % Plt Count 323 306 (140-440) K/uL Neut % (Auto) 68.2 (42.0-72.0) % Lymph % (Auto) 16.6 L (20-44) % [place] % (Auto) 6.3 (0.0-11.0) % Eos % (Auto) 3.1 (0.0-7.0) % Baso % (Auto) 0.4 (0.0-3.0) % Neut # (Auto) 8.50 H (1.7-7.0) K/uL Lymph # (Auto) 2.10 (0.90-2.90) K/uL [place] # (Auto) 0.80 (0.00-0.90) K/UL Eos # (Auto) 0.40 (0.00-0.50) K/uL Baso # (Auto) 0.00 (0.00-0.30) K/uL Abs Immat Gran (auto) 0.70 H (0.00-0.30) K/uL Imm/Tot Granulo (auto) 5.4 % Sodium 136 136 (135-149) mmol/L Potassium 3.9 3.9 (3.6-5.1) mmol/L Chloride 105 106 (96-114) mmol/L Carbon Dioxide 25 24 (20-32) mmol/L Anion Gap 6 L 6 L (7-15) mEq/L BUN 11 13 (5-24) mg/dL Creatinine 0.5 0.5 (0.5-1.5) mg/dL Estimated Creat Clear 120.32 120.32 Estimated GFR 131 131 ml/min Glucose 85 108 (60-115) mg/dL Calcium 8.9 8.8 (8.4-10.6) mg/dL Total Bilirubin 0.3 0.2 (0.1-1.5) mg/dL AST 74 H 69 H (12-35) U/L ALT 62 H 58 H (4-35) U/L Alkaline Phosphatase 223 H 204 H (40-150) U/L Total Protein 6.9 6.5 (6.0-8.3) g/dL Albumin 3.7 3.5 (3.3-5.0) g/dL TSH 4.010 (0.270-4.200) uIU/mL Vital signs: Vital Signs - 24 hr 05/07/24 11:26 05/07/24 16:31 05/07/24 16:42 Temperature 98.0 F 98.8 F Pulse Rate [Pulse Oximeter] 78 80 Pulse Rate [Right Pulse Oximeter] 98 Respiratory Rate 18 18 16 Blood Pressure [Right Arm] 123/83 123/80 Blood Pressure [Right Upper Arm] 116/79 Pulse Oximetry 98 98 96 Oxygen Delivery Method Room Air Room Air Room Air 05/07/24 17:02 05/07/24 17:22 05/07/24 17:37 Temperature 99.4 F Pulse Rate [Pulse Oximeter] 80 82 81 Pulse Rate [Right Pulse Oximeter] Respiratory Rate 16 16 16 Blood Pressure [Right Arm] 123/80 121/88 123/83 Blood Pressure [Right Upper Arm] Pulse Oximetry Oxygen Delivery Method 05/07/24 19:47 Temperature 98.5 F Pulse Rate [Pulse Oximeter] 86 Pulse Rate [Right Pulse Oximeter] Respiratory Rate 12 Blood Pressure [Right Arm] 105/70 Blood Pressure [Right Upper Arm] Pulse Oximetry 97 Oxygen Delivery Method Room Air
--- NOTE | 2024-05-07 20:18 | P.GYNHP_ITS ---
[employer] - H&P:HPI Medical History of Present Illness Date Seen: 05/07/24 Narrative: Sheyla Caraballo is a 28 year old female PPD#4 from being admitted for IV antibiotics due to endometritis and wound breakdown with infection. See clinic notes for details. Pelvic US today: IMPRESSION: Minimal fluid seen within the endometrial canal without obvious vascular material which may represent minimal blood products. No definite retained products. RUQ US today: IMPRESSION: Hepatic steatosis. Otherwise no acute intra-abdominal abnormality. Meds Home Medications and Allergies Home Medications ?Medication ?Instructions ?Recorded ?Confirmed ?Type docosahexaenoic acid 200 mg mg PO 12/19/23 05/07/24 History capsule ( DHA) Allergies Allergy/AdvReac Type Severity Reaction Status Date / Time No Known Drug Allergies Allergy Verified 05/07/24 14:29 PFSH Active Problems (Updated 05/07/24 @ 21:41 by Tamra Womack MD) Wound dehiscence (Acute) ?T81.30XA - Disruption of wound, unspecified, initial encounter (ICD-10) Wound infection (Acute) ?T14.8XXA - Other injury of unspecified body region, initial encounter (ICD- 10) ?L08.9 - Local infection of the skin and subcutaneous tissue, unspecified (ICD-10) Endometritis (Acute) ?N71.9 - Inflammatory disease of uterus, unspecified (ICD-10) Edema, peripheral (Acute) ?R60.0 - Localized edema (ICD-10) Elevated liver enzymes (Acute) ?R74.8 - Abnormal levels of other serum enzymes (ICD-10) perineal pain (Acute) ?O90.89 - Other complications of the puerperium, not elsewhere classified (ICD-10) ?R10.2 - Pelvic and perineal pain (ICD-10) care following vaginal delivery (Acute) ?Z39.2 - Encounter for routine follow-up (ICD-10) Lactating mother (Acute) ?Z39.1 - Encounter for care and examination of lactating mother (ICD-10) Back pain affecting (Acute) ?O99.891 - Other specified diseases and conditions complicating (ICD-10) ?M54.9 - Dorsalgia, unspecified (ICD-10) Pain of round ligament affecting , antepartum (Acute) ?O26.899 - Other specified related conditions, unspecified trimester (ICD-10) ?R10.2 - Pelvic and perineal pain (ICD-10) Anemia (Acute) ?D64.9 - Anemia, unspecified (ICD-10) Velamentous insertion of umbilical cord (Acute) ?O43.129 - Velamentous insertion of umbilical cord, unspecified trimester (ICD-10) (Acute) ?Z34.90 - Encounter for supervision of normal , unspecified, unspecified trimester (ICD-10) Hypothyroidism (Acute) ?E03.9 - Hypothyroidism, unspecified (ICD-10) Medical History (Updated 05/07/24 @ 21:41 by Tamra Womack MD) Hypothyroidism ?E03.9 - Hypothyroidism, unspecified (ICD-10) Family History Grandmother Diabetes Social History What is your current living situation?: I presently have a place to live Problems where you live: no known problems In the past 12 months, utilities in danger of being shut off: no In past 12 months, lack of transportation kept you from medical appts, meetings, work, or getting things needed for daily living: no In the past 12 mos, have been you worried that your food would run out before you had money to buy more?: never true In the past 12 mos, the food you bought just didn't last and you didn't have money to buy more?: never true Smoking Status: Never smoker Non-prescribed substance use: denies use How often does anyone, including family, friends and others, physically hurt you : never How often does anyone, including family, friends and others, insult or talk down to you: never How often does anyone, including family, friends and others, threaten you with harm: never How often does anyone, including family, friends and others, scream or curse at you: never Little interest or pleasure in doing things: several days Feeling down, depressed, or hopeless: several days Reproductive Health History Date of last pap smear: 10/2023 History of abnormal pap smear: Yes (ASCUS, negative HPV-2017) : 1 Para: 1 History of multiple gestations: No History of ectopic pregnancies: No History of sexually transmitted diseases: No Treatment for infertility: No [employer] - Exam Physical Exam: Vital signs: Temp Pulse Resp BP Pulse Ox O2 Del Method 98.5 F 86 12 105/70 97 Room Air 05/07/24 19:47 05/07/24 19:47 05/07/24 19:47 05/07/24 19:47 05/07/24 19:47 05/07/24 19:47 Narrative: VITAL SIGNS: Stable. She is afebrile. GENERAL: She is uncomfortable in sitting position. HEART: Regular rate and rhythm. LUNGS: Clear to auscultation bilaterally. ABDOMEN: Soft, no guarding or rebound. Nondistended with positive bowel sounds throughout. Exquisite fundal tenderness. PELVIC: Purulent discharge noted at the vaginal introitus. Separation of 2nd degree repair with surrounding erythema and purulent discharge as well. Very tender to palpation. Patient was tearful with separation of the labia. Did not tolerate internal exam. Wound culture obtained EXTREMITIES: 1+ bilateral lower extremity edema. NEUROLOGIC: Intact. [employer] - Results Labs Labs: Short CBC 05/07/24 05/07/24 Range/Units 11:56 17:40 WBC 12.45 H 13.29 H (4.50-11.00) K/uL Hgb 9.5 L 9.8 L (12.0-16.0) gm/dL Hct 30.3 L 31.4 L (33.0-51.0) % Plt Count 306 323 (140-440) K/uL BMP 05/07/24 05/07/24 11:56 17:40 Sodium 136 136 Potassium 3.9 3.9 Chloride 106 105 Carbon Dioxide 24 25 BUN 13 11 Creatinine 0.5 0.5 Glucose 108 85 Calcium 8.8 8.9 Liver Function 05/07/24 05/07/24 Range/Units 11:56 17:40 Total Bilirubin 0.2 0.3 (0.1-1.5) mg/dL AST 69 H 74 H (12-35) U/L ALT 58 H 62 H (4-35) U/L Alkaline Phosphatase 204 H 223 H (40-150) U/L Albumin 3.5 3.7 (3.3-5.0) g/dL Assessment and Plan Assessment and plan (1) Endometritis: Status: Acute Assessment and Plan: - Exquisite fundal tenderness on physical exam - Afebrile, VSS - WBC 13.29 - Pelvic ultrasound did not show retained placenta - GBS negative - At least 24 hours of clindamycin 900 mg Q8H + gentamicin 5mg/kg Q24H (2) Wound infection: Status: Acute Assessment and Plan: - At least 24 hours of IV abx - Will likely require a course PO antibiotic such as Augmentin after discharge (3) Wound dehiscence: Status: Acute Assessment and Plan: - Discussed with patient that after the infection is resolved, her 2nd degree laceration can heal by secondary intention or she might need a surgical repair. - We will need to wait for resolution of infection prior to any repair to decreased the risk of break down again. - Ibuprofen, Tylenol, and oxycodone PRN for pain (4) Edema, peripheral: Status: Acute Assessment and Plan: - Negative DVT - SCDs when not ambulating - Will continue to monitor (5) Elevated liver enzymes: Status: Acute Assessment and Plan: - AST 74/ ALT 62 - Denies any persistent headache, vision changes, SOB, right upper quadrant/epigastric pain. - RUQ US hepatic steatosis - BPs all within normal limit. Will continue BP monitoring - Currently low concern for pre-eclampsia. Low threshold for magnesium sulfate if patient has elevated BP.
[2024-05-07] MEDS: OXYCODONE 5 MG TABLET PO (23:44)
[2024-05-08] MEDS: ACETAMINOPHEN 500 MG TABLET 1000 MG PO ×4 (03:28→21:08)
[2024-05-08] MEDS: CLINDAMYCIN 900 MG/50 ML-D5W 900 MG/50 ML PIGGYBACK 100 MG IVPB ×3 (03:31→20:09)
[2024-05-08 03:38] VITALS: BP 104/65; PULSE 83; RESP 12; TEMP 36.6
[2024-05-08] MEDS: IBUPROFEN 600 MG TABLET PO ×3 (05:49→18:35)
[2024-05-08 06:59] LABS: Basophils Absolute Auto 0.05 K/uL (0.00-0.30); Basophils Percent Auto 0.5 % (0.0-3.0); Eosinophils Absolute Auto 0.36 K/uL (0.00-0.50); Eosinophils Percent Auto 3.6 % (0.0-7.0); Hematocrit 28.6 % (33.0-51.0); Hemoglobin* 8.7 gm/dL (12.0-16.0); Immature Granulocytes Abs Auto 0.45 K/uL (0.00-0.30); Immature Granulocytes Pct Auto 4.6 %; Lymphocytes Percent Auto 21.3 % (20-44); Mean Corpuscular HGB Conc 30 gm/dL (32-36); Mean Corpuscular Hemoglobin 25 pg (26-34); Mean Corpuscular Volume 83 fL (80-100); Monocytes Percent Auto 6.4 % (0.0-11.0); Neutrophils Absolute Auto 6.29 K/uL (1.7-7.0); Neutrophils Percent Auto 63.6 % (42.0-72.0); Platelet Count* 304 K/uL (140-440); RDW Coefficient of Variation % 17.9 % (11.5-15.5); Red Blood Count 3.43 m/uL (4.00-5.20); White Blood Count* 9.88 K/uL (4.50-11.00)
[2024-05-08 07:11] LABS: Chloride* 105 mmol/L (96-114)
[2024-05-08 07:12] LABS: Albumin* 3.2 g/dL (3.3-5.0); Potassium* 3.9 mmol/L (3.6-5.1); Sodium* 135 mmol/L (135-149)
[2024-05-08 07:15] LABS: Alanine Aminotransferase* 56 U/L (4-35); Alkaline Phosphatase* 184 U/L (40-150); Anion Gap 4 mEq/L (7-15); Aspartate Amino Transferase* 61 U/L (12-35); Bilirubin Total* 0.2 mg/dL (0.1-1.5); Blood Urea Nitrogen* 14 mg/dL (5-24); Carbon Dioxide* 26 mmol/L (20-32); Creatinine* 0.6 mg/dL (0.5-1.5); Est. Creatinine Clearance* 100.27; Estimated Glomerular Filt Rate 125 ml/min; Glucose* 86 mg/dL (60-115); Total Protein* 6.1 g/dL (6.0-8.3)
[2024-05-08 07:16] LABS: Calcium* 8.1 mg/dL (8.4-10.6)
[2024-05-08 08:16] LABS: Slide Review Reflex Yes
[2024-05-08 08:17] LABS: Slide Review Acceptable Review (Acceptable)
[2024-05-08 08:20] VITALS: BP 100/67; PULSE 81; RESP 17; TEMP 36.7; O2SAT 98
--- NOTE | 2024-05-08 09:07 | P.GYNPN_ITS ---
Progress Note: A&P Assessment and plan (1) Endometritis: Status: Acute Assessment and Plan: 1. Will add ampicillin to her IV antibiotic regimen. 2. Likely discharge tomorrow on Augmentin 875 p.o. b.i.d. for an additional 10 days. (2) Wound infection: Status: Acute Assessment and Plan: 1. Pain has improved. Minimal erythema and edema today (3) Transaminitis: Status: Acute Assessment and Plan: 1. Liver enzymes are decreasing will check again tomorrow. Blood pressure has been normal. (4) Anemia: Status: Acute Assessment and Plan: 1. Start iron supplement. WIGS SALESPERSON- PN:Subj Non-OR Subjective Time Seen by Provider: 09:07 Date Seen: 05/08/24 WIGS SALESPERSON-PN: Obj Exam Physical Exam: Vital signs: Temp Pulse Resp BP Pulse Ox O2 Del Method 98.1 F 81 17 100/67 98 Room Air 05/08/24 08:20 05/08/24 08:20 05/08/24 08:20 05/08/24 08:20 05/08/24 08:20 05/08/24 08:20 Narrative: day 5 from a normal spontaneous vaginal delivery. Hospital day 2 for endometritis and perineal laceration infection. The patient reports that her abdominal pain has not changed significantly overnight she continues to have lower abdominal pain/pelvic pain. She feels her vaginal pain has significantly improved. She has not had a fever. Because her abdominal pain has not significantly improved I am adding ampicillin to her antibiotic regimen so she will be on ampicillin, gentamicin and clindamycin. Liver transaminitis is improving. She states that she has upper abdominal pain as well. The abdominal ultrasound showed fatty liver disease which is the likely reason for the transaminitis. She has been pumping for breast milk. Her mother has the baby and has been giving formula by bottle which the baby has been doing well with. We will be giving breast milk by bottle as well. Continues to complain of right lower extremity pain on the anterior aspect of her leg over her christiansen. Will start magnesium supplementation Exam: General: Appears tired. woman in no acute distress. Vital signs: Per her electronic record Heart: Regular rate and rhythm without gallop, rub or murmur. Chest: Clear to auscultation bilaterally. Abdomen: Bilateral upper quadrant tenderness to deep palpation and significant/exquisite fundal tenderness. No guarding or rebound. Normal bowel sounds throughout. Genitourinary: Minimal erythema and edema with a small amount of purulent d rainage. There is skin separation of the laceration repair. Extremities: Nontender to palpation, Shan stockings in place. WIGS SALESPERSON - PN: Obj Data Labs Labs: Laboratory Results - last 24 hr 05/07/24 05/07/24 05/08/24 11:56 17:40 06:45 WBC 12.45 H 13.29 H 9.88 RBC 3.63 L 3.78 L 3.43 L Hgb 9.5 L 9.8 L 8.7 L Hct 30.3 L 31.4 L 28.6 L MCV 84 83 83 MCH 26 26 25 L MCHC 31 L 31 L 30 L RDW Coeff of Chetan 17.9 H 17.9 H Plt Count 306 323 304 Neut % (Auto) 68.2 63.6 Lymph % (Auto) 16.6 L 21.3 [place] % (Auto) 6.3 6.4 Eos % (Auto) 3.1 3.6 Baso % (Auto) 0.4 0.5 Neut # (Auto) 8.50 H 6.29 Lymph # (Auto) 2.10 2.10 [place] # (Auto) 0.80 0.60 Eos # (Auto) 0.40 0.36 Baso # (Auto) 0.00 0.05 Abs Immat Gran (auto) 0.70 H 0.45 H Imm/Tot Granulo (auto) 5.4 4.6 Diff Slide Review Acceptable Review Sodium 136 136 135 Potassium 3.9 3.9 3.9 Chloride 106 105 105 Carbon Dioxide 24 25 26 Anion Gap 6 L 6 L 4 L BUN 13 11 14 Creatinine 0.5 0.5 0.6 Estimated Creat Clear 120.32 120.32 100.27 Estimated GFR 131 131 125 Glucose 108 85 86 Calcium 8.8 8.9 8.1 L Total Bilirubin 0.2 0.3 0.2 AST 69 H 74 H 61 H ALT 58 H 62 H 56 H Alkaline Phosphatase 204 H 223 H 184 H Total Protein 6.5 6.9 6.1 Albumin 3.5 3.7 3.2 L TSH 4.010
[2024-05-08] MEDS: polyethylene glycoL 3350 17 GM PACK PO (09:12)
[2024-05-08] MEDS: DOCUSATE SODIUM 100 MG CAPSULE PO (09:12)
[2024-05-08] MEDS: AMPICILLIN 2 GM in 0.9 % SODIUM CHLORIDE Mini-bag 100 ML IVPB ×4 (09:33→21:05)
[2024-05-08 09:54] LABS: Albumin* 3.1 g/dL (3.3-5.0); Chloride* 105 mmol/L (96-114)
[2024-05-08 09:55] LABS: Potassium* 3.7 mmol/L (3.6-5.1); Sodium* 135 mmol/L (135-149)
[2024-05-08 09:57] LABS: Anion Gap 9 mEq/L (7-15); Aspartate Amino Transferase* 64 U/L (12-35); Bilirubin Total* 0.2 mg/dL (0.1-1.5); Carbon Dioxide* 21 mmol/L (20-32); Creatinine* 0.6 mg/dL (0.5-1.5); Est. Creatinine Clearance* 100.27; Estimated Glomerular Filt Rate 125 ml/min
[2024-05-08 09:58] LABS: Alanine Aminotransferase* 53 U/L (4-35); Alkaline Phosphatase* 180 U/L (40-150); Blood Urea Nitrogen* 12 mg/dL (5-24); Calcium* 8.1 mg/dL (8.4-10.6); Glucose* 103 mg/dL (60-115); Total Protein* 6.1 g/dL (6.0-8.3)
[2024-05-08] MEDS: FERROUS SULFATE 325 MG TABLET 650 MG PO (10:09)
[2024-05-08 12:00] VITALS: PULSE 80; RESP 19; TEMP 36.5; O2SAT 99
[2024-05-08 16:00] VITALS: BP 112/76; PULSE 90; RESP 17; TEMP 36.6; O2SAT 98
[2024-05-08 21:38] VITALS: BP 110/71; PULSE 79; RESP 16; TEMP 36.9; O2SAT 98
[2024-05-09] MEDS: AMPICILLIN 2 GM in 0.9 % SODIUM CHLORIDE Mini-bag 100 ML IVPB ×5 (01:34→18:02)
[2024-05-09] MEDS: IBUPROFEN 600 MG TABLET PO ×3 (01:34→14:30)
[2024-05-09 02:08] VITALS: BP 124/78; PULSE 75; RESP 16; TEMP 37.1; O2SAT 97
[2024-05-09] MEDS: CLINDAMYCIN 900 MG/50 ML-D5W 900 MG/50 ML PIGGYBACK 100 MG IVPB ×2 (04:22→12:57)
[2024-05-09] MEDS: ACETAMINOPHEN 500 MG TABLET 1000 MG PO ×3 (04:24→18:48)
[2024-05-09 06:42] LABS: Basophils Absolute Auto 0.06 K/uL (0.00-0.30); Basophils Percent Auto 0.7 % (0.0-3.0); Eosinophils Absolute Auto 0.31 K/uL (0.00-0.50); Eosinophils Percent Auto 3.4 % (0.0-7.0); Hematocrit 29.3 % (33.0-51.0); Immature Granulocytes Abs Auto 0.74 K/uL (0.00-0.30); Immature Granulocytes Pct Auto 8.1 %; Lymphocytes Absolute Auto 1.88 K/uL (0.90-2.90); Lymphocytes Percent Auto 20.5 % (20-44); Mean Corpuscular HGB Conc 31 gm/dL (32-36); Mean Corpuscular Hemoglobin 26 pg (26-34); Mean Corpuscular Volume 84 fL (80-100); Monocytes Percent Auto 6.2 % (0.0-11.0); Neutrophils Absolute Auto 5.59 K/uL (1.7-7.0); Neutrophils Percent Auto 61.1 % (42.0-72.0); Platelet Count* 323 K/uL (140-440); RDW Coefficient of Variation % 18.1 % (11.5-15.5); Red Blood Count 3.49 m/uL (4.00-5.20); White Blood Count* 9.15 K/uL (4.50-11.00)
[2024-05-09 06:51] LABS: Slide Review Reflex Yes
--- NOTE | 2024-05-09 07:16 | PM.OBDSVD1 ---
DS: Providers Provider Time Seen by Provider: 07:16 Date Seen: 05/09/24 Date of admission: 05/07/24 16:24 Primary care physician: Not a Local Provider Admitting Clinician: Tamra Womack MD Attending Physician on discharge: Toma Murry MD Date of Discharge: 05/09/24 DS: Diagnosis Discharge Diagnosis (1) Transaminitis: Status: Acute (2) Wound dehiscence: Status: Acute (3) Wound infection: Status: Acute (4) Endometritis: Status: Acute Exam Narrative: Exam Narrative: GENERAL APPEARANCE: Pleasant, [race], well-groomed woman in no acute distress. VITAL SIGNS: as noted in nursing notes HEAD: Normocephalic, atraumatic. THYROID: no masses, nodularity, tenderness or enlargement. LUNGS: Clear to auscultation bilaterally without wheezes, rales or rhonchi. HEART: Regular rate and rhythm with normal S1 and S2. No gallop, rub or murmur. ABDOMEN: Soft, nontender, nondistended, with normal bowels sounds throughout. FUNDUS: Firm and nontender in the midline approximately 3 cm below the umbilicus second-degree laceration is but erythema is minimal and there is no edema or purulent drainage. EXTREMITIES: No cyanosis, clubbing, or edema. [+/-] varicosities. NEUROLOGIC: Normal gait and balance. Normal deep tendon reflexes at bilateral patella 2+/2, equal without clonus. PSYCHIATRIC: alert and oriented x3. Normal speech pattern, eye contact and affect. SKIN: Warm, dry, and well perfused. Good turgor. No lesions, nodules or rashes. Const: Vital Signs, click to edit/add: Vital Signs - 24 hr 05/08/24 08:20 05/08/24 12:00 05/08/24 16:00 Temperature 98.1 F 97.7 F 97.9 F Pulse Rate [Pulse Oximeter] 81 80 90 Respiratory Rate 17 19 17 Blood Pressure [Ri ght Arm] 100/67 112/76 Pulse Oximetry 98 99 98 Oxygen Delivery Me thod Room Air Room Air Room Air 05/08/24 21:38 05/09/24 02:08 Temperature 98.5 F 98.7 F Pulse Rate [Pulse Oximeter] 79 75 Respiratory Rate 16 16 Blood Pressure [Ri ght Arm] 110/71 124/78 Pulse Oximetry 98 97 Oxygen Delivery Me thod Room Air Room Air OB - DS: Summary Hospital Course Hospital Course: Sheyla 28-year-old 1 para 1 who is status post a normal spontaneous vaginal delivery on 05/03/2024 who was readmitted to the hospital on 05/07/2024 with endometritis and infection of her second-degree perineal laceration with dehiscence. She was started on clindamycin and gentamicin for 24 hours and continue to have some uterine tenderness no ampicillin was added on 05/08/2024. Today she is feeling well with minimal tenderness on exam her only concern is that she has a strained muscle in her right side. She otherwise is feeling well. She has no vaginal pain. Time Spent with Patient Time attestation: Total time spent providing and/or coordinating discharge services: Discharge Plan Discharge Disposition: Home, Self-Care Date of Admission: 05/07/24 16:24 Attending Provider on Discharge: Toma Murry Primary Care Provider: Provider,Not a Local Condition: Stable Anticipated Discharge Date/Time: 05/09/24 09:30 Discharge Medications: New amoxicillin-pot clavulanate 875-125 mg tablet 1 tab PO BID 10 Days Qty: 20 0RF Continued DHA 200 mg capsule PO levothyroxine 50 mcg capsule 50 mcg PO QDAY Qty: 90 0RF ferrous sulfate 325 mg (65 mg iron) tablet,delayed release (DR/EC) 650 mg PO Q OTHER DAY Qty: 60 0RF Discharge Orders: Discharge Order (Routine); Ordered 05/09/24 Ordered By: Toma Murry Patient Education: Endometritis (DC), Non-Alcoholic Fatty Liver Disease (GEN), Leg Edema (ED) Additional Instructions: At the request of Dr. Vu Soni of the obstetricians, we are going to discharge you from the ER in she will subsequently see you in clinic. She will take a look at your perineum, further discuss the significance of the liver enzymes that we found today. She will also give you further tips on the edema. Her TSH was drawn in if there is any concern, we will make sure either you or the engineering team supervisor is aware of this. Activity Level: Activity as Tolerated Activity Detail: Nothing vaginally until 6 weeks . Return to clinic for a follow up visit in 1 week: this is also your 2 week visit. Discharge Diet: Regular Follow Up Appointments: [facility] [Provider Group] Provider,Not a Local [Primary Care Provider] - Forms: [facility] Info Instructions
[2024-05-09 08:14] LABS: Slide Review Acceptable Review (Acceptable)
[2024-05-09] MEDS: polyethylene glycoL 3350 17 GM PACK PO (08:32)
[2024-05-09] MEDS: MAGNESIUM OXIDE 400 MG TABLET PO (08:32)
[2024-05-09 08:34] VITALS: BP 109/73; PULSE 80; RESP 17; TEMP 36.8; O2SAT 99
[2024-05-09 13:50] VITALS: BP 99/59; PULSE 83; RESP 17; TEMP 36.7; O2SAT 98
[2024-05-09 15:59] VITALS: BP 101/63; PULSE 83; RESP 19; TEMP 37.1; O2SAT 97
[2024-05-09] MEDS: DOCUSATE SODIUM 100 MG CAPSULE PO (18:48)
== END 2024-05-09 18:50 | disposition home or self-care (01) | DRG 561 ==
LOC: ED 13:55 → OB 16:25
PROVIDERS: Obstetrics & Gynecology; Admitting Provider Obstetrics & Gynecology; Emergency Provider Family Medicine; Visit Provider Obstetrics & Gynecology
DX: O86.12 Endometritis following delivery (principal); O12.05 Gestational edema, complicating the puerperium; O90.1 Disruption of perineal obstetric wound; R74.01 Elevation of levels of liver transaminase levels; O86.09 Infection of obstetric surgical wound, other surgical site; O99.285 Endocrine, nutritional and metabolic diseases complicating the puerperium; E03.9 Hypothyroidism, unspecified; K76.0 Fatty (change of) liver, not elsewhere classified; O90.81 Anemia of the puerperium; D64.9 Anemia, unspecified
CPT/HCPCS: 36415; 80053; 84443; 85025; 85027; 87070; 93970; 99284; 99285; A9270; J0290; J0736; J1580

== ENCOUNTER 2024-05-07 15:06 | Outpatient (CLI) | payer OTHER, BC, SELFPAY ==
--- NOTE | 2024-05-07 16:00 | CRLHL7_ITS ---
For Patients: As a result of the Century Cures Act, medical imaging exams and procedure reports are released immediately into your electronic medical record. You may view this report before your referring provider. If you have questions, please contact your health care provider. INDICATION: Elevated liver enzymes TECHNIQUE: Ultrasound abdomen limited. Sonographic images of the right upper quadrant were obtained using hernandez-scale and color Doppler images. COMPARISON: None. FINDINGS: Liver: Mildly increased echogenicity. No masses. No intrahepatic biliary dilatation. Gallbladder: The gallbladder demonstrates no shadowing calculus. No sign of gallbladder wall thickening or pericholecystic fluid. Common bile duct: 6 mm. Pancreas: Unremarkable. Right kidney: Normal in size. Normal echotexture and cortex. No masses, stones, or hydronephrosis. Vasculature: Proximal abdominal aorta and IVC are normal. IMPRESSION: Hepatic steatosis. Otherwise no acute intra-abdominal abnormality. Dictated by Master Roberts MD @ 05/07/2024 5:27:03 PM (Electronically Signed)
--- NOTE | 2024-05-07 16:00 | CRLHL7_ITS ---
For Patients: As a result of the Century Cures Act, medical imaging exams and procedure reports are released immediately into your electronic medical record. You may view this report before your referring provider. If you have questions, please contact your health care provider. INDICATION: Pelvic and peroneal pain TECHNIQUE: Ultrasound pelvis transabdominal. Real-time sonographic images with spectral and color Doppler imaging of the ovaries were obtained. COMPARISON: None FINDINGS: Uterus: 16.2 x 6.9 x 10.1 cm. Normal echotexture of the myometrium. No masses. Endometrium: Endometrial thickness measures 12 mm. Minimal fluid is seen within the endometrial canal. No obvious vascular material. Right ovary measures 3.7 x 2.2 x 3.2 cm and left ovary measures 2.9 x 1.4 x 1.8 cm. No ovarian or adnexal masses. Normal arterial and venous blood flow is demonstrated in both ovaries. Cul-de-sac: No significant free fluid. IMPRESSION: Minimal fluid seen within the endometrial canal without obvious vascular material which may represent minimal blood products. No definite retained products. Dictated by Master Roberts MD @ 05/07/2024 5:29:35 PM (Electronically Signed)
== END 2024-05-07 15:07 | disposition home or self-care (01) ==
LOC: US 15:06
PROVIDERS: Visit Provider Obstetrics & Gynecology
DX: Z39.2 Encounter for routine postpartum follow-up (principal); R74.8 Abnormal levels of other serum enzymes; R10.2 Pelvic and perineal pain; K76.0 Fatty (change of) liver, not elsewhere classified; O90.89 Other complications of the puerperium, not elsewhere classified
CPT/HCPCS: 76705; 76856; 93976

== ENCOUNTER 2024-05-31 12:17 | Outpatient (CLI) | payer OTHER, BC, SELFPAY ==
--- NOTE | 2024-05-31 13:50 | W.PM.LAC.MC ---
Consult Note - Mom Date of Visit Date of visit: 05/31/24 customer service and sales consultant: Toma Zaragoza Visit Code: Visit Patient's Information Phone number: [phone] : 1 Para: 1 Allergies No Known Drug Allergies Allergy (Verified 05/21/24 14:02) Mother's Medical History: Medical History (Updated 05/25/24 @ 21:55 by Tamra Womack MD) Hypothyroidism ?E03.9 - Hypothyroidism, unspecified (ICD-10) Delivery Information Delivery type: Vaginal Weeks Gestation: 40+4 Gestational Age: AGA Weight: 3.26 kg Discharge Weight: 3.09 kg Baby's Information Medications: Vit D drops Baby's Age at Visit: 4 weeks Baby's Provider or Clinic: [facility] Jaundice: No Reason for Consult Reason for Consult: questions about milk transfer, supply, latching issues Past Experience Past Experience: No Current Frequency of Day Feedings: every 2-3 hours Frequency of Night Feedings: every 3 hours Both Breasts: Yes Suck: strong Latch: on and off during feedings Length of Time: if on right side, 2-3 minutes, if on left side 5-10 minutes Pumping Pumping: Yes Quantity Pumped: 3 oz every 2-3 hours with 30 min of pumping Supplementing EMB Supplement: Yes (bottles 3-4 times/day) Formula Supplement: Yes (takes formula 2-3 times/day, 2-3 oz per parent preference) Baby Elimination Number of Wet Diapers a Day: 8 or more Number of BM a Day: 6 or more Breast/Nipple Condition Breast Information: Breasts WNL, symmetrical and rounded. Intramammary distance <1.5 inches. Nipples are supple and without retraction. Mom reports feeling full before nursing and breast softening after nursing session. Engorgement: No Maternal Nipple Condition - Left: Common Nipple Maternal Nipple Condition - Right: Common Nipple Sore Nipples: No Onsite Pre-Feed weight: 4.038 kg (Baby up 728gm in 20 day for average gain of 36 gm/day) Post-Feed weight: 4.098 kg Milk Transferred (mL): 60 Pre-Nursing Left Nipple: Within Normal Limits Pre-Nursing Right Nipple: Within Normal Limits Post-Nursing Left Nipple: Within Normal Limits Post-Nursing Right Nipple: Within Normal Limits Assessments/Interventions Assessments/Interventions: Baby latched to mom's right breast; one and off her nipple initially; moved baby to better alignment: ear, shoulder, hip in straight line and mom/baby belly to belly with improved latch. Mom also using scissor hold on her breast; shifted to more of a breast sandwich hold and having mom hold baby snug to her breast (keep chin and nose touching breast) with increased latch time. Baby also needs assist bringing bottom lip out/flanged. With these maneuvers, baby stayed latched for 11 min and transferred 30 ml milk Repeated on the left breast; baby stayed on this breast more readily from the beginning; when she began to slide off, coached mom to snug her back on and baby nursed for 12 minutes on her left side and transferred another 30 ml. Discussed with mom baby needs help staying in a good position to be able to maintain latch - mom verbalized the nursing session was better than she gets at home and believes she can repeat this for upcoming nursings. She voiced it helps her to know the baby is getting a good amount of milk in that nursing time; also reassured weight gain from last clinic visit is in the expcted range. Time spent reviewing history and face to face visit with mom, dad and baby: 75 minutes Meds Home Medications and Allergies Home Medications ?Medication ?Instructions ?Recorded ?Confirmed ?Type docosahexaenoic acid 200 mg mg PO 12/19/23 05/21/24 History capsule ( DHA) Allergies Allergy/AdvReac Type Severity Reaction Status Date / Time No Known Drug Allergies Allergy Verified 05/21/24 14:02
== END 2024-05-31 12:18 | disposition home or self-care (01) ==
LOC: OB LAC 12:18
PROVIDERS: Visit Provider Obstetrics & Gynecology
DX: Z39.1 Encounter for care and examination of lactating mother (principal)
CPT/HCPCS: G0463

== ENCOUNTER 2024-06-18 08:12 | Outpatient (CLI) | payer OTHER, BC, SELFPAY | END 2024-06-18 08:13 | disposition home or self-care (01) | PROVIDERS: Visit Provider Midwife | DX: Z39.2 Encounter for routine postpartum follow-up (principal) | CPT/HCPCS: 84443 ==

== ENCOUNTER 2025-05-09 13:23 | Outpatient (CLI) | payer OTHER, BC, SELFPAY ==
[2025-05-09 23:23] LABS: Chlamydia DNA Amplified* NOT DETECTED (No Detected); GC DNA Amplified* NOT DETECTED (No Detected)
== END 2025-05-09 13:24 | disposition home or self-care (01) ==
PROVIDERS: PCP Family Medicine; Visit Provider Family Medicine
DX: R74.01 Elevation of levels of liver transaminase levels (principal); D64.9 Anemia, unspecified; E03.9 Hypothyroidism, unspecified; Z11.4 Encounter for screening for human immunodeficiency virus [HIV]; Z11.59 Encounter for screening for other viral diseases
CPT/HCPCS: 80053; 80061; 84443; 86592; 86703; 86803; 87491; 87591